=== PATIENT | female | born 1960 | race Two or more races ===

== ENCOUNTER 2018-03-11 12:23 | Emergency (ER) | payer SELFPAY ==
[~2018-03-11] VITALS: Ht 157.5 cm; Wt 54.4 kg
[2018-03-11 12:29] VITALS: Ht 157.5 cm; Wt 54.4 kg
[2018-03-11 14:32] LABS: BASOPHIL % 0.3 % (0-2); PLATELET COUNT 275 x10^3mcL (130-400); RED CELL DISTRIBUTION WIDTH 12.9 % (11.5-14.5)
[2018-03-11 14:35] LABS: CALCIUM 8.6 mg/dL (8.5-10.1); CARBON DIOXIDE 22.5 mmol/L (21-32); CHLORIDE SERUM 109 mmol/L (98-107); CREATININE SERUM 0.7 mg/dL (0.6-1.0); GFR1 > 60 mL/min; GLUCOSE SERUM 96 mg/dL (74-106); POTASSIUM SERUM 3.3 mmol/L (3.5-5.1); SODIUM SERUM 147 mmol/L (136-145)
[2018-03-11 14:40] LABS: ALBUMIN 3.7 g/dL (3.4-5.0); ALKALINE PHOSPHATASE 148 U/L (46-116); ALT/SGPT 25 U/L (14-59); AST/SGOT 20 U/L (15-37); BILIRUBIN TOTAL 0.15 mg/dL (0.20-1.00)
[2018-03-11 18:57] LABS: AMPHETAMINE QUAL UR NONE DETECTED (See below)
[2018-03-12 11:29] LABS: UA SPECIFIC GRAVITY >=1.030 (1.005-1.035); microscopic required? YES; urine erythrocyte NEGATIVE (NEGATIVE)
[2018-03-12 12:05] VITALS: BP 145/86
== END 2018-03-12 12:10 | disposition home or self-care (01) ==
LOC: ED 12:23 → EDBD 12:23 → ED 12:23
PROVIDERS: Emergency Medicine; Family Medicine
DX: F10.129 Alcohol abuse with intoxication, unspecified (principal); E87.6 Hypokalemia
CPT/HCPCS: 83880; 84439; G0480; J0515; J1630; J2250